=== PATIENT | female | born 1940 | race Caucasian/White ===

== ENCOUNTER 2023-08-03 10:38 | Emergency (ER) | payer MEDICARE, OTHER | END 2023-08-03 14:52 | disposition home or self-care (01) | LOC: JD.ED 10:38 | DX: S52.125A Nondisplaced fracture of head of left radius, initial encounter for closed fracture (principal); J34.89 Other specified disorders of nose and nasal sinuses; M25.531 Pain in right wrist; Z88.1 Allergy status to other antibiotic agents; Z88.8 Allergy status to other drugs, medicaments and biological substances; Z88.5 Allergy status to narcotic agent; Z88.6 Allergy status to analgesic agent; W19.XXXA Unspecified fall, initial encounter | CPT/HCPCS: 70160; 70160-26; 73080-26-RT; 73080-RT; 73110-26-RT; 73110-RT; 99283 ==

== ENCOUNTER 2024-03-14 08:35 | Emergency (ER) | payer MEDICARE, OTHER ==
[2024-03-14] MEDS: Acetaminophen 325 MG Tab PO ONE (09:46)
[2024-03-14 10:22] LABS: BASOPHILS PERCENT AUTO 0.2 % (0.0-1.0); EOSINOPHILS ABSOLUTE AUTO 0.1 K/mm3 (0.0-0.4); EOSINOPHILS PERCENT AUTO 0.6 % (0.0-6.0); HEMATOCRIT 37.5 % (37.0-47.0); HEMOGLOBIN 12.1 gm/dl (12.0-16.0); IMMATURE GRAN ABSOLUTE AUTO 0.07 K/mm3 (0.00-0.05); IMMATURE GRAN PERCENT AUTO 0.5 % (0.0-0.4); LYMPHOCYTES ABSOLUTE AUTO 2.3 K/mm3 (1.0-4.8); LYMPHOCYTES PERCENT AUTO 14.8 % (24.0-44.0); MEAN CORPUSCULAR HEMOGLOBIN 28.4 pg (28.0-32.0); MEAN CORPUSCULAR HGB CONC 32.3 g/dl (32.0-36.0); MEAN PLATELET VOLUME 10.6 fl (9.4-12.3); MONOCYTES ABSOLUTE AUTO 0.7 K/mm3 (0.0-0.8); MONOCYTES PERCENT AUTO 4.4 % (0.0-8.0); NEUTROPHILS ABSOLUTE AUTO 12.2 K/mm3 (1.8-7.7); NEUTROPHILS PERCENT AUTO 79.5 % (41.0-71.0); PLATELET COUNT,PLT 233 K/mm3 (150-400); RED BLOOD CELL COUNT 4.26 M/mm3 (4.10-5.30); WHITE BLOOD CELL COUNT,WBC 15.31 K/mm3 (3.9-11.3)
[2024-03-14 10:44] LABS: A/G RATIO 1.2 (1-2); ALBUMIN 3.8 g/dl (3.4-5.0); ANION GAP 14.9 (5-15); BILIRUBIN TOTAL 0.8 mg/dL (0.2-1.0); BUN/CREATININE RATIO 32.2 (14-18); CALCIUM 10.1 mg/dL (8.5-10.1); CREATININE 1.8 mg/dL (0.55-1.02); EST CRCL DRUG DOSING (CG) 19.39 mL/min; MAGNESIUM 1.1 mg/dL (1.8-2.4); POTASSIUM,K 4.9 mEq/L (3.5-5.1)
[2024-03-14] MEDS ORDERED: Magnesium Sulfate (4.06 MEQ/ML) 5 GM/10 ML SDV IV ONE (11:34)
[2024-03-14] MEDS: Sodium Chloride 0.9% 500 ML IV ONE (12:32)
[2024-03-14] MEDS: Magnesium Sulfate/Water 2 GM in Premix Bag 1 BAG IV ONE (12:35)
[2024-03-14] MEDS: Magnesium Oxide 400 MG Tab PO ONE (12:35)
[2024-03-14 13:15] LABS: APPEARANCE,URINE CLEAR (Clear); BILIRUBIN,URINE NEGATIVE (Negative); COLOR,URINE YELLOW (Yellow); GLUCOSE,URINE 2+ (Negative); KETONES,URINE NEGATIVE (Negative); LEUKOCYTE ESTERASE,URINE TRACE (Negative); NITRITE,URINE NEGATIVE (Negative); OCCULT BLOOD,URINE NEGATIVE (Negative); PH,URINE 5.5 (5.0-8.0); PROTEIN,URINE 2+ (Negative); UROBILINOGEN,URINE 0.2 (0.2-1.0)
[2024-03-14 13:28] LABS: BACTERIA,URINE FEW /hpf (FEW); HYALINE CASTS,URINE 0-5 /lpf (0-5); MUCUS,URINE FEW /hpf (FEW); RBC,URINE 0-5 /hpf (0-5)
== END 2024-03-14 14:45 | disposition home or self-care (01) ==
LOC: JD.ED 08:35
DX: R07.89 Other chest pain (principal); S32.010A Wedge compression fracture of first lumbar vertebra, initial encounter for closed fracture; S32.030A Wedge compression fracture of third lumbar vertebra, initial encounter for closed fracture; Z79.899 Other long term (current) drug therapy; Z79.82 Long term (current) use of aspirin; Z79.84 Long term (current) use of oral hypoglycemic drugs; Z88.8 Allergy status to other drugs, medicaments and biological substances; Z88.5 Allergy status to narcotic agent; W19.XXXA Unspecified fall, initial encounter; I50.9 Heart failure, unspecified; M54.9 Dorsalgia, unspecified
CPT/HCPCS: 36415; 71101; 74176; 80053; 81001; 83690; 83735; 85025; 87086; 93005; 96365; 96366; 99284; A9270; J3475; J7030; 93010

== ENCOUNTER 2024-07-15 06:33 | Inpatient (IN) | payer MEDICARE, OTHER ==
[2024-07-15] MEDS ORDERED: Naloxone 0.4 MG/ML SDV IVPUSH PRN (06:54)
[2024-07-15 07:21] LABS: BASOPHILS ABSOLUTE AUTO 0.1 K/mm3 (0.0-0.2); BASOPHILS PERCENT AUTO 0.4 % (0.0-1.0); EOSINOPHILS PERCENT AUTO 7.3 % (0.0-6.0); HEMATOCRIT 39.3 % (37.0-47.0); HEMOGLOBIN 12.6 gm/dl (12.0-16.0); IMMATURE GRAN ABSOLUTE AUTO 0.04 K/mm3 (0.00-0.05); IMMATURE GRAN PERCENT AUTO 0.3 % (0.0-0.4); LYMPHOCYTES ABSOLUTE AUTO 1.6 K/mm3 (1.0-4.8); LYMPHOCYTES PERCENT AUTO 12.1 % (24.0-44.0); MEAN CORPUSCULAR HEMOGLOBIN 30.9 pg (28.0-32.0); MEAN CORPUSCULAR HGB CONC 32.1 g/dl (32.0-36.0); MEAN CORPUSCULAR VOLUME 96.3 fl (83.0-99.0); MEAN PLATELET VOLUME 10.8 fl (9.4-12.3); MONOCYTES ABSOLUTE AUTO 0.8 K/mm3 (0.0-0.8); MONOCYTES PERCENT AUTO 5.8 % (0.0-8.0); NEUTROPHILS ABSOLUTE AUTO 9.8 K/mm3 (1.8-7.7); NEUTROPHILS PERCENT AUTO 74.1 % (41.0-71.0); PLATELET COUNT,PLT 238 K/mm3 (150-400); RED BLOOD CELL COUNT 4.08 M/mm3 (4.10-5.30); WHITE BLOOD CELL COUNT,WBC 13.18 K/mm3 (3.9-11.3)
[2024-07-15] MEDS: HYDROmorphone 0.5 MG/0.5 ML Syringe IVPUSH ONE (07:32)
[2024-07-15 07:42] LABS: INR 1.07; PROTHROMBIN TIME 11.3 SECONDS (9.7-12.0)
[2024-07-15 07:44] LABS: A/G RATIO 1.2 (1-2); ALBUMIN 3.6 g/dl (3.4-5.0); BUN/CREATININE RATIO 15.8 (14-18); CALCIUM 9.2 mg/dL (8.5-10.1); CREATININE 1.2 mg/dL (0.55-1.02); EST CRCL DRUG DOSING (CG) 31.75 mL/min; PROTEIN TOTAL,TP 6.5 g/dl (6.4-8.2)
[2024-07-15 09:09] LABS: APPEARANCE,URINE CLEAR (Clear); BILIRUBIN,URINE NEGATIVE (Negative); COLOR,URINE YELLOW (Yellow); GLUCOSE,URINE 3+ (Negative); KETONES,URINE 1+ (Negative); LEUKOCYTE ESTERASE,URINE NEGATIVE (Negative); NITRITE,URINE NEGATIVE (Negative); OCCULT BLOOD,URINE TRACE-INTACT (Negative); PH,URINE 8.5 (5.0-8.0); PROTEIN,URINE 2+ (Negative); UROBILINOGEN,URINE 0.2 (0.2-1.0)
[2024-07-15 09:30] LABS: BACTERIA,URINE RARE /hpf (FEW); MUCUS,URINE NOT SEEN /hpf (FEW); RBC,URINE 0-5 /hpf (0-5); SQUAMOUS EPITHELIAL CELLS,UR 0-5 /hpf (0-5); WBC,URINE 0-5 /hpf (0-5)
[2024-07-15] MEDS ORDERED: Melatonin 3 MG Tab PO PRN (09:32)
[2024-07-15] MEDS ORDERED: oxyCODONE 5 MG Tab PO PRN (09:32)
[2024-07-15] MEDS ORDERED: hydrOXYzine HCl 25 MG Tab PO PRN (09:42)
[2024-07-15] MEDS ORDERED: hydrALAZINE 20 MG/ML SDV IVPUSH PRN (09:53)
[2024-07-15] MEDS ORDERED: Labetalol 100 MG/20 ML MDV IVPUSH PRN (09:53)
[2024-07-15] MEDS ORDERED: 50% Dextrose in Water 50 ML Syringe IVPUSH PRN (09:54)
[2024-07-15] MEDS: HYDROmorphone 0.5 MG/0.5 ML Syringe IVPUSH PRN (10:52)
[2024-07-15] MEDS: Potassium Chloride 10 MEQ in Premix Bag 1 BAG IV SCH (10:53)
[2024-07-15] MEDS ORDERED: Sodium Chloride 0.9% 250 ML IV SCH (11:15)
[2024-07-15] MEDS: Insulin Lispro 100 Unit/ML 3 ML KwikPen SUBCUT SCH (11:34)
[2024-07-15] MEDS: Sodium Chloride 0.9% 250 ML ONE (11:35)
[2024-07-15] MEDS: Ondansetron 4 MG/2 ML SDV IV PRN (11:38)
[2024-07-15] MEDS ORDERED: Lidocaine 1% 5 ML VIAL ONE (12:43)
[2024-07-15] MEDS ORDERED: Propofol 200 MG/20 ML SDV ONE (12:44)
[2024-07-15] MEDS ORDERED: Midazolam 1 MG/ML 2 ML SDV ONE (12:44)
[2024-07-15] MEDS ORDERED: fentaNYL 100 MCG/2 ML SDV ONE (12:44)
[2024-07-15] MEDS ORDERED: Ketamine 200 MG/20 ML MDV ONE (12:46)
[2024-07-15] MEDS ORDERED: ePHEDrine 50 MG/ML SDV ONE (12:57)
[2024-07-15] MEDS: Sodium Chloride 0.9% 1,000 ML IV SCH (13:00)
[2024-07-15] MEDS ORDERED: Phenylephrine 1% 10 MG/ML SDV ONE (13:01)
[2024-07-15] MEDS ORDERED: fentaNYL 100 MCG/2 ML SDV IVPUSH PRN (16:05)
[2024-07-15] MEDS ORDERED: droPERidol 5 MG/2 ML SDV IVPUSH PRN (16:05)
[2024-07-15] MEDS ORDERED: Ondansetron 4 MG/2 ML SDV IVPUSH PRN (16:05)
[2024-07-15] MEDS: Carvedilol 12.5 MG Tab PO SCH (16:55)
[2024-07-15] MEDS: Aspirin 81 MG Tab.Chew PO SCH (20:41)
[2024-07-15] MEDS: Acetaminophen/HYDROcodone 325-5 MG Tab PO PRN (20:41)
[2024-07-16] MEDS: Acetaminophen 325 MG Tab PO PRN (03:39)
[2024-07-16 04:47] LABS: BASOPHILS PERCENT AUTO 0.3 % (0.0-1.0); EOSINOPHILS ABSOLUTE AUTO 0.2 K/mm3 (0.0-0.4); EOSINOPHILS PERCENT AUTO 1.3 % (0.0-6.0); HEMATOCRIT 28.7 % (37.0-47.0); HEMOGLOBIN 9.2 gm/dl (12.0-16.0); IMMATURE GRAN ABSOLUTE AUTO 0.05 K/mm3 (0.00-0.05); IMMATURE GRAN PERCENT AUTO 0.4 % (0.0-0.4); LYMPHOCYTES ABSOLUTE AUTO 1.5 K/mm3 (1.0-4.8); LYMPHOCYTES PERCENT AUTO 12.5 % (24.0-44.0); MEAN CORPUSCULAR HEMOGLOBIN 31.2 pg (28.0-32.0); MEAN CORPUSCULAR HGB CONC 32.1 g/dl (32.0-36.0); MEAN CORPUSCULAR VOLUME 97.3 fl (83.0-99.0); MEAN PLATELET VOLUME 11.7 fl (9.4-12.3); MONOCYTES ABSOLUTE AUTO 1.1 K/mm3 (0.0-0.8); MONOCYTES PERCENT AUTO 9.1 % (0.0-8.0); NEUTROPHILS PERCENT AUTO 76.4 % (41.0-71.0); PLATELET COUNT,PLT 193 K/mm3 (150-400); RED BLOOD CELL COUNT 2.95 M/mm3 (4.10-5.30); WHITE BLOOD CELL COUNT,WBC 11.81 K/mm3 (3.9-11.3)
[2024-07-16 05:26] LABS: A/G RATIO 1.2 (1-2); ALBUMIN 2.8 g/dl (3.4-5.0); ANION GAP 11.5 (5-15); BILIRUBIN TOTAL 0.8 mg/dL (0.2-1.0); BUN/CREATININE RATIO 17.1 (14-18); CALCIUM 8.3 mg/dL (8.5-10.1); CREATININE 1.4 mg/dL (0.55-1.02); EST CRCL DRUG DOSING (CG) 24.93 mL/min; MAGNESIUM 1.2 mg/dL (1.8-2.4); POTASSIUM,K 3.5 mEq/L (3.5-5.1); PROTEIN TOTAL,TP 5.2 g/dl (6.4-8.2); TSH 0.126 uIU/mL (0.358-3.74)
[2024-07-16 05:46] LABS: T4 FREE 1.33 ng/dL (0.76-1.46)
[2024-07-16] MEDS: Levothyroxine 88 MCG Tab PO SCH (06:50)
[2024-07-16] MEDS: Pantoprazole 40 MG Tab.CR PO SCH (06:50)
[2024-07-16] MEDS ORDERED: Spironolactone 25 MG Tab PO SCH (09:00)
[2024-07-16] MEDS ORDERED: Losartan 100 MG Tab PO SCH ×2 (09:00)
[2024-07-16] MEDS ORDERED: Bumetanide 1 MG Tab PO SCH (09:00)
[2024-07-16] MEDS: Allopurinol 300 MG Tab PO SCH (09:55)
[2024-07-16] MEDS: Losartan 100 MG Tab PO SCH (09:55)
[2024-07-16] MEDS: Empagliflozin 25 MG Tab PO SCH (09:55)
[2024-07-16] MEDS: Magnesium Sulfate/Water Premix 4 GM in Premix Bag 1 BAG IV ONE (11:03)
[2024-07-16] MEDS: Potassium Chloride 20 MEQ Tab.ER PO ONE (11:04)
[2024-07-16] MEDS ORDERED: Calcium Carbonate 500 MG Tab.Chew PO PRN (18:15)
[2024-07-16] MEDS: Calcium Carbonate 500 MG Tab.Chew PO PRN (18:57)
[2024-07-17] MEDS: Polyethylene Glycol 3350 Powder 17 GM Packet PO PRN (05:08)
[2024-07-17 05:31] LABS: BASOPHILS PERCENT AUTO 0.3 % (0.0-1.0); EOSINOPHILS ABSOLUTE AUTO 0.6 K/mm3 (0.0-0.4); EOSINOPHILS PERCENT AUTO 4.9 % (0.0-6.0); HEMATOCRIT 24.9 % (37.0-47.0); HEMOGLOBIN 8.2 gm/dl (12.0-16.0); IMMATURE GRAN ABSOLUTE AUTO 0.05 K/mm3 (0.00-0.05); IMMATURE GRAN PERCENT AUTO 0.4 % (0.0-0.4); LYMPHOCYTES ABSOLUTE AUTO 1.4 K/mm3 (1.0-4.8); LYMPHOCYTES PERCENT AUTO 12.1 % (24.0-44.0); MEAN CORPUSCULAR HEMOGLOBIN 31.7 pg (28.0-32.0); MEAN CORPUSCULAR HGB CONC 32.9 g/dl (32.0-36.0); MEAN CORPUSCULAR VOLUME 96.1 fl (83.0-99.0); MEAN PLATELET VOLUME 11.4 fl (9.4-12.3); MONOCYTES PERCENT AUTO 8.4 % (0.0-8.0); NEUTROPHILS ABSOLUTE AUTO 8.5 K/mm3 (1.8-7.7); NEUTROPHILS PERCENT AUTO 73.9 % (41.0-71.0); PLATELET COUNT,PLT 197 K/mm3 (150-400); RED BLOOD CELL COUNT 2.59 M/mm3 (4.10-5.30); WHITE BLOOD CELL COUNT,WBC 11.54 K/mm3 (3.9-11.3)
[2024-07-17 05:56] LABS: ANION GAP 11.4 (5-15); BUN/CREATININE RATIO 17.9 (14-18); CALCIUM 9.1 mg/dL (8.5-10.1); CREATININE 1.4 mg/dL (0.55-1.02); EST CRCL DRUG DOSING (CG) 24.93 mL/min; MAGNESIUM 2.4 mg/dL (1.8-2.4); POTASSIUM,K 4.4 mEq/L (3.5-5.1)
[2024-07-17] MEDS: Bupivacaine 0.25% 10 ML SDV ONE (12:45)
[2024-07-17 20:41] LABS: VITAMIN D 1,25 24.1 pg/mL (19.9-79.3)
[2024-07-18] MEDS: Losartan 50 MG Tab PO SCH (09:04)
[2024-07-18] MEDS: Lactulose Soln 10 GM/15 ML 30 ML UD Cup PO PRN (16:37)
[2024-07-19 05:59] LABS: BASOPHILS PERCENT AUTO 0.2 % (0.0-1.0); EOSINOPHILS ABSOLUTE AUTO 0.8 K/mm3 (0.0-0.4); HEMATOCRIT 24.6 % (37.0-47.0); HEMOGLOBIN 7.8 gm/dl (12.0-16.0); IMMATURE GRAN ABSOLUTE AUTO 0.04 K/mm3 (0.00-0.05); IMMATURE GRAN PERCENT AUTO 0.4 % (0.0-0.4); LYMPHOCYTES ABSOLUTE AUTO 1.5 K/mm3 (1.0-4.8); MEAN CORPUSCULAR HEMOGLOBIN 31.3 pg (28.0-32.0); MEAN CORPUSCULAR HGB CONC 31.7 g/dl (32.0-36.0); MEAN CORPUSCULAR VOLUME 98.8 fl (83.0-99.0); MEAN PLATELET VOLUME 11.4 fl (9.4-12.3); MONOCYTES ABSOLUTE AUTO 0.9 K/mm3 (0.0-0.8); MONOCYTES PERCENT AUTO 8.8 % (0.0-8.0); NEUTROPHILS ABSOLUTE AUTO 6.6 K/mm3 (1.8-7.7); NEUTROPHILS PERCENT AUTO 67.6 % (41.0-71.0); PLATELET COUNT,PLT 227 K/mm3 (150-400); RED BLOOD CELL COUNT 2.49 M/mm3 (4.10-5.30); WHITE BLOOD CELL COUNT,WBC 9.69 K/mm3 (3.9-11.3)
[2024-07-19 06:32] LABS: A/G RATIO 0.9 (1-2); ALBUMIN 2.6 g/dl (3.4-5.0); ANION GAP 12.8 (5-15); BILIRUBIN TOTAL 0.6 mg/dL (0.2-1.0); BUN/CREATININE RATIO 21.2 (14-18); CALCIUM 8.7 mg/dL (8.5-10.1); CREATININE 1.7 mg/dL (0.55-1.02); EST CRCL DRUG DOSING (CG) 20.53 mL/min; MAGNESIUM 2.1 mg/dL (1.8-2.4); PHOSPHORUS 3.7 mg/dL (2.6-4.7); POTASSIUM,K 4.8 mEq/L (3.5-5.1); PROTEIN TOTAL,TP 5.5 g/dl (6.4-8.2)
[2024-07-19] MEDS: Losartan 25 MG Tab PO SCH (08:25)
[2024-07-19] MEDS: Spironolactone 25 MG Tab PO SCH (08:28)
[2024-07-19] MEDS: Bumetanide 1 MG Tab PO SCH (08:28)
[2024-07-20] MEDS ORDERED: Bumetanide 1 MG Tab PO SCH (09:00)
== END 2024-07-19 13:26 | DRG 481 ==
LOC: JD.ED 06:33 → JD.MS 09:32
PROVIDERS: ADMIT Student in an Organized Health Care Education/Training Program; ATTEND Student in an Organized Health Care Education/Training Program
PROC: 0QS736Z Reposition Left Upper Femur with Intramedullary Internal Fixation Device, Percutaneous Approach (ICD-10-PCS; principal; 2024-07-15 13:30)
DX: S72.142A Displaced intertrochanteric fracture of left femur, initial encounter for closed fracture (principal); S72.145A Nondisplaced intertrochanteric fracture of left femur, initial encounter for closed fracture; I13.2 Hypertensive heart and chronic kidney disease with heart failure and with stage 5 chronic kidney disease, or end stage renal disease; I50.32 Chronic diastolic (congestive) heart failure; J96.11 Chronic respiratory failure with hypoxia; E11.22 Type 2 diabetes mellitus with diabetic chronic kidney disease; Z79.890 Hormone replacement therapy; N18.9 Chronic kidney disease, unspecified; E03.9 Hypothyroidism, unspecified; E78.00 Pure hypercholesterolemia, unspecified; W19.XXXA Unspecified fall, initial encounter; H54.7 Unspecified visual loss; W18.30XA Fall on same level, unspecified, initial encounter; I10 Essential (primary) hypertension; Z66 Do not resuscitate; R55 Syncope and collapse; Z90.710 Acquired absence of both cervix and uterus; Z90.89 Acquired absence of other organs; Z90.49 Acquired absence of other specified parts of digestive tract; Z88.1 Allergy status to other antibiotic agents; Z88.5 Allergy status to narcotic agent; Z88.8 Allergy status to other drugs, medicaments and biological substances; Z79.82 Long term (current) use of aspirin; Z98.49 Cataract extraction status, unspecified eye; Z98.890 Other specified postprocedural states; Z99.81 Dependence on supplemental oxygen; Z87.891 Personal history of nicotine dependence; Y93.9 Activity, unspecified; Y92.002 Bathroom of unspecified non-institutional (private) residence as the place of occurrence of the external cause; Z79.84 Long term (current) use of oral hypoglycemic drugs; Z79.899 Other long term (current) drug therapy
CPT/HCPCS: 36415; 73502; 80053; 81001; 82652; 85025; 85610; 93005; 96374; 99285; J1171; 01210; 73552-26-LT; 73552-LT; 76000; 76000-26; 80048; 82947; 83735; 84100; 84439; 84443; 87641; 93010; 93306; 93880; 93880-26; 94760; 97110-GP; 97112-GP; 97116-GP; 97161-GP; 97530-GP; 99100; 99223; 99232; 99239; 99284; A9270-GY; C1713; C1776; J0665; J1815; J2250; J2371; J2405; J2704; J3010; J3475; J3480; J3490; J7030; J7050